=== PATIENT | male | born 1995 | race Hispanic/Latino ===

== ENCOUNTER 2025-03-11 06:16 | Emergency (ER) | payer BC ==
[2025-03-11] MEDS ORDERED: KETOROLAC 30 MG/ML INJ ONE (06:35)
[2025-03-11] MEDS ORDERED: TAMSULOSIN 0.4 MG SR CAP ONE (06:35)
[2025-03-11] MEDS ORDERED: ONDANSETRON 4 MG/2 ML VIAL ONE (06:35)
[2025-03-11] MEDS ORDERED: MAGNESIUM SULFATE 1 gm IVPB 1 GM/100 ML BAG IV ONE (06:36)
[2025-03-11] MEDS ORDERED: MORPHINE 4 MG/ML SYR ONE (06:36)
[2025-03-11 06:41] LABS: Absolute Lymphocytes (CBC) 1.4 K/uL (0.7-4.9); Hematocrit 46.9 % (39.6-49.0); Hemoglobin 16.1 g/dL (13.6-17.9); MCH 30.1 pg (27.0-35.0); MCHC 34.4 g/dL (32.0-36.0); MCV 87.5 fL (80-100); MPV 8.9 fL (7.6-11.3); Nucleated RBC Absolute Count 0.0 (0-0); Nucleated Red Blood Cells % 0.2 % (0-0); RBC Red Blood Cell Count 5.36 M/uL (4.33-5.43); White Blood Count 6.30 thou/uL (4.3-10.9)
[2025-03-11 06:50] LABS: Sqamous Epithelial <5 /HPF (None Seen); Urine Culture Reflex Order NOT NEEDED; Urine Microscopic Reflex YN ORDER UMIC
[2025-03-11 06:57] LABS: ALT/SGPT 86.0 U/L (16-61); AST/SGOT 79.0 U/L (15-37); Albumin 3.8 g/dL (3.4-5.0); Albumin/Globulin Ratio 1.2 (1.1-1.8); Alkaline Phosphatase 98.0 U/L (45-117); Anion Gap 9.9 mEq/L (5.0-15.0); BUN Blood Urea Nitrogen 15.0 mg/dL (7-18); Globulin 3.2 g/dL (2.3-3.5); Glucose Level 96.0 mg/dL (74-106); Potassium 3.9 mEq/L (3.5-5.1)
--- NOTE | 2025-03-11 07:47 | RAD REPORT ---
EXAMINATION: CT ABDOMEN AND PELVIS WITHOUT CONTRAST CLINICAL INDICATION: right flank pain TECHNIQUE: CT abdomen and pelvis was performed, without IV contrast, as per department protocol. Axia l, sagittal and coronal reconstructions were obtained. One or more of the following dose reduction techniques were used: Automated exposure control, adjustment of the mA and kV according to the patien t size, and iterative reconstruction. Unless otherwise specified, incidental findings do not require dedicated imaging follow-up. COMPARISON: No prior exam. FINDINGS: The lack of intravenous contrast limits the sensitivity of this exam for evaluation of solid visceral organs, vascular structures, and retroperitoneum. LOWER CHEST: The visualized lung bases are clear. LIVER:Normal in size and contour. No focal lesion. Grossly unremarkable gallbladder. SPLEEN: Normal size. No focal lesion. PANCREAS: No mass, ductal dilation, or josé luis-pancreatic fluid. ADRENALS: Normal; no mass. KIDNEYS AND URETERS: 7 mm stone is present in the proximal right ureter resulting in moderate right h ydronephrosis. Additional bilateral calyceal calculi seen, largest inferiorly on the left measuring 6 mm. URINARY BLADDER: Normal contour. GASTROINTESTINAL TRACT: No evidence of bowel obstruction, significant free fluid, free air or abscess . APPENDIX: Normal appendix. LYMPH NODES: No lymphadenopathy. MUSCULOSKELETAL: Mild multilevel spinal degenerative changes. ADDITIONAL FINDINGS: None. IMPRESSION: 7 mm stone proximal right ureter resulting in moderate right hydronephrosis. Additional bilateral marcus yceal calculi also present.
--- NOTE | 2025-03-11 07:59 | ER ---
Nurse's Notes [facility] Name: Tyree Marie Age: 29 yrs Sex: Male : 1995 Arrival Date: 03/11/2025 Time: 06:16 Bed 7 Private MD: Diagnosis: Ureterolithiasis, kidney stone, hydronephrosis, right flank pain Presentation: 03/11 06:29 Chief complaint: Patient states: I have right sided flank pain that began yesterday bm8 morning. Coronavirus screen: At this time, the client does not indicate any symptoms associated with coronavirus-19. Ebola Screen: Patient negative for fever greater than or equal to 101.5 degrees Fahrenheit, and additional compatible Ebola Virus Disease symptoms Patient denies exposure to infectious person. Patient denies travel to an Ebola-affected area in the 21 days before illness onset. No symptoms or risks identified at this time. Initial Sepsis Screen: Does the patient meet any 2 criteria? No. Patient's initial sepsis screen is negative. Does the patient have a suspected source of infection? No. Patient's initial sepsis screen is negative. Risk Assessment: Do you want to hurt yourself or someone else? Patient reports no desire to harm self or others. Onset of symptoms was March 10, 2025 at 08:00. 06:29 Method Of Arrival: Ambulatory bm8 06:29 Acuity: REJI 3 bm8 Triage Assessment: 06:30 General: Appears in no apparent distress. uncomfortable, Behavior is calm, cooperative, bm8 appropriate for age. Pain: Complains of pain in anterior aspect of right lateral abdomen and posterior aspect of right lateral abdomen Pain currently is 6 out of 10 on a pain scale. EENT: No deficits noted. No signs and/or symptoms were reported regarding the EENT system. Neuro: No deficits noted. Level of Consciousness is awake, alert, obeys commands, Oriented to person, place, time, situation, Appropriate for age. Cardiovascular: No deficits noted. Denies chest pain. Respiratory: No deficits noted. GI: No signs and/or symptoms were reported involving the gastrointestinal system. : Urine is blood tinged, Reports pain in right flank(s). Derm: No signs and/or symptoms reported regarding the dermatologic system. Musculoskeletal: No signs and/or symptoms reported regarding the musculoskeletal system. Historical: - Allergies: 06:30 No Known Allergies; bm8 - Home Meds: 06:30 None [Active]; bm8 - PMHx: 06:30 Kidney stone; bm8 - PSHx: 06:30 urethral stent; bm8 - Immunization history:: Adult Immunizations up to date. - Infectious Disease History:: Denies. - Family history:: not pertinent. - Social history:: Smoking status: Patient denies any tobacco usage or history of. - Hospitalizations: : No recent hospitalization is reported. Screenin:34 [facility] ED Fall Risk Assessment (Adult) History of falling in the last 3 months, bm8 including since admission No falls in past 3 months (0 pts) Confusion or Disorientation No (0 pts) Intoxicated or Sedated No (0 pts) Impaired Gait No (0 pts) Mobility Assist Device Used No (0 pt) Altered Elimination No (0 pt) Score/Fall Risk Level 0 - 2 = Low Risk Oriented to surroundings, Maintained a safe environment, Educated pt \T\ family on fall prevention, incl call for assistance when getting out of bed, Assessed \T\ reinforced patient's understanding of fall precautions, Hourly rounding (assess needs \T\ fall precautionary measures) done, Used ambulatory aids as needed (educated on \T\ assisted with), Used gait belt as appropriate. Abuse screen: Denies threats or abuse. Nutritional screening: No deficits noted. Tuberculosis screening: No symptoms or risk factors identified. Assessment: 06:34 Reassessment: see triage assessment. bm8 07:36 Reassessment: Patient denies pain at this time. Patient states feeling better. Patient ar8 states symptoms have improved. 08:30 Reassessment: Patient appears in no apparent distress at this time. Patient and/or ph family updated on plan of care and expected duration. Pain level reassessed. Patient is alert, oriented x 3, equal unlabored respirations, skin warm/dry/pink. Patient denies pain at this time. Patient states feeling better. Patient states symptoms have improved. Vital Signs: 06:29 BP 144 / 104; Pulse 58; Resp 17; Temp 98.8; Pulse Ox 98% ; Weight 108.86 kg; Height 5 bm8 ft. 10 in. ; Pain 6/10; 07:37 Pain 0/10; ar8 07:38 Pain 0/10; ar8 07:42 BP 128 / 85; Pulse 53; Resp 18; Pulse Ox 98% on R/A; Pain 0/10; ar8 06:29 Body Mass Index 34.44 (108.86 kg, 177.8 cm) bm8 06:29 Pain Scale: Adult bm8 07:37 Pain Scale: Adult ar8 07:38 Pain Scale: Adult ar8 07:42 Pain Scale: Adult ar8 Cristy Coma Score: 06:34 Eye Response: spontaneous(4). Motor Response: obeys commands(6). Verbal Response: bm8 oriented(5). Total: 15. ED Course: 06:20 Patient arrived in ED. gm2 06:23 Ronny Enciso MD is Attending Physician. rn 06:29 Adams Oconnor RN is Primary Nurse. bm8 06:30 Triage completed. bm8 06:30 Arm band placed on right wrist. bm8 06:34 Patient has correct armband on for positive identification. Bed in low position. Call bm8 light in reach. Side rails up X 1. Client placed on continuous cardiac and pulse oximetry monitoring. NIBP monitoring applied. Pulse ox on. NIBP on. Door closed. Noise minimized. Pillow given. Verbal reassurance given. Head of bed elevated. 06:34 No provider procedures requiring assistance completed. Initial lab(s) drawn, by ED 8 staff, sent to lab. Urine collected: clean catch specimen, clear. Inserted saline lock: 20 gauge in left antecubital area, using aseptic technique. Blood collected. Flushed with 10 mL NS. Patient maintains SpO2 saturation greater than 95% on room air. 06:47 CT Stone Protocol In Process Unspecified. EDMS 07:08 Attending Physician role handed off by Ronny Enciso MD sp3 07:08 Stan Michelle MD is Attending Physician. sp3 07:58 Steve Mantilla MD is Referral Physician. sp3 08:30 IV discontinued, intact, bleeding controlled, No redness/swelling at site. Pressure ph dressing applied. Administered Medications: 06:55 Drug: Magnesium Sulfate IVPB 1 grams IVPB once over 1 hrs Route: IVPB; Infused Over: 1 lg3 hrs; Site: left antecubital; 07:39 Follow up: Response: No adverse reaction; IV Status: Completed infusion ar8 06:55 Drug: Ketorolac IVP 30 mg IVP once Route: IVP; Site: left antecubital; lg3 07:38 Follow up: Pain 0/10 Adult; Response: No adverse reaction; Pain is decreased ar8 06:55 Drug: morphine IVP or IV 4 mg IVP once over 4 mins Route: IVP; Infused Over: 4 mins; lg3 Site: left antecubital; 07:37 Follow up: Pain 0/10 Adult; Response: No adverse reaction; Pain is decreased ar8 06:55 Drug: Ondansetron IVP 4 mg IVP once; over 2 minutes Route: IVP; Site: left antecubital; lg3 07:37 Follow up: Response: No adverse reaction; Marked relief of symptoms ar8 06:55 Drug: Flomax PO 0.4 mg PO once Route: PO; lg3 07:37 Follow up: Response: No adverse reaction ar8 Medication: 06:34 VIS not applicable for this client. bm8 Outcome: 07:58 Discharge ordered by . sp3 08:29 Discharged to home ambulatory, ph 08:29 Condition: good 08:29 Discharge instructions given to patient, Instructed on discharge instructions, follow up and referral plans. medication usage, Demonstrated understanding of instructions, follow-up care, medications, Prescriptions given X 3, 08:30 Patient left the ED. ph Signatures: Dispatcher [employer] EDMS Ronny Enciso MD MD rn Hall, Patricia, RN RN [facility] RN lg3 Stan Michelle MD MD sp3 Luann Soto 2 Adams Oconnor RN RN bm8 Long Carey RN RN ar8 Corrections: (The following items were deleted from the chart) 06:39 06:34 Inserted saline lock: 20 gauge in right antecubital area, using aseptic lg3 technique. Blood collected. Flushed with 10 mL NS bm8
--- NOTE | 2025-03-11 07:59 | EDPHYS ---
Physician Documentation [facility] Name: Tryee Marie Age: 29 yrs Sex: Male : 1995 Arrival Date: 03/11/2025 Time: 06:16 Bed 7 Private MD: ED Physician Stan Michelle HPI: 03/11 06:28 This 29 yrs old Male presents to ER via Unassigned with complaints of Flank rn Pain, Low Back Pain. 06:28 Patient reports right flank pain, identical to previous kidney stones. Reported needed rn intervention last year to pass a kidney stone.. Historical: - Allergies: 06:30 No Known Allergies; bm8 - Home Meds: 06:30 None [Active]; bm8 - PMHx: 06:30 Kidney stone; bm8 - PSHx: 06:30 urethral stent; bm8 - Immunization history:: Adult Immunizations up to date. - Infectious Disease History:: Denies. - Family history:: not pertinent. - Social history:: Smoking status: Patient denies any tobacco usage or history of. - Hospitalizations: : No recent hospitalization is reported. ROS: 06:28 Constitutional: Negative for fever, chills, and weight loss, Cardiovascular: Negative rn for chest pain, palpitations, and edema, Respiratory: Negative for shortness of breath, cough, wheezing, and pleuritic chest pain, Abdomen/GI: Negative for abdominal pain, nausea, vomiting, diarrhea, and constipation, Back: Positive for flank pain Exam: 06:28 Constitutional: This is a well developed, well nourished patient who is awake, alert, rn and in no acute distress. Ambulatory to room and bathroom without assistance or difficulty Abdomen/GI: Soft, nontender Vital Signs: 06:29 BP 144 / 104; Pulse 58; Resp 17; Temp 98.8; Pulse Ox 98% ; Weight 108.86 kg; Height 5 bm8 ft. 10 in. ; Pain 6/10; 07:37 Pain 0/10; ar8 07:38 Pain 0/10; ar8 07:42 BP 128 / 85; Pulse 53; Resp 18; Pulse Ox 98% on R/A; Pain 0/10; ar8 06:29 Body Mass Index 34.44 (108.86 kg, 177.8 cm) bm8 06:29 Pain Scale: Adult bm8 07:37 Pain Scale: Adult ar8 07:38 Pain Scale: Adult ar8 07:42 Pain Scale: Adult ar8 Bonita Coma Score: 06:34 Eye Response: spontaneous(4). Motor Response: obeys commands(6). Verbal Response: bm8 oriented(5). Total: 15. MDM: 06:23 Medical Screening Exam initiated rn 07:32 Data reviewed: vital signs, nurses notes, lab test result(s), radiologic studies. ED sp3 course: 29-year-old male signed out to me by Dr. Enciso at change of shift. Patient is awaiting laboratory values and CT scan of the abdomen pelvis with working diagnosis kidney stone. We will await workup and medicate as needed. Disposition pending workup and patient course.. 07:57 ED course: Patient with 7 mm stone in her proximal right ureter with moderate sp3 hydronephrosis. Pain is fully controlled. I had conversation with patient on intervention versus awaiting passage. Given his symptomatic control currently, we will await passage. He will be referred to Dr. Mantilla with clear instructions to return here for any worsening symptoms for probable transfer for stent placement.. 03/11 06:27 Order name: CBC with Diff; Complete Time: 07:01 rn 03/11 06:27 Order name: CMP; Complete Time: 07:01 rn 03/11 06:27 Order name: UA Rfx Win Cult if indicated; Complete Time: 07:01 rn 03/11 06:27 Order name: CT Stone Protocol; Complete Time: 07:56 rn 03/11 06:27 Order name: IV Saline Lock; Complete Time: 06:39 rn 03/11 06:27 Order name: Labs collected and sent; Complete Time: 06:39 rn Administered Medications: 06:55 Drug: Magnesium Sulfate IVPB 1 grams IVPB once over 1 hrs Route: IVPB; Infused Over: 1 lg3 hrs; Site: left antecubital; 07:39 Follow up: Response: No adverse reaction; IV Status: Completed infusion ar8 06:55 Drug: Ketorolac IVP 30 mg IVP once Route: IVP; Site: left antecubital; lg3 07:38 Follow up: Pain 0/10 Adult; Response: No adverse reaction; Pain is decreased ar8 06:55 Drug: morphine IVP or IV 4 mg IVP once over 4 mins Route: IVP; Infused Over: 4 mins; lg3 Site: left antecubital; 07:37 Follow up: Pain 0/10 Adult; Response: No adverse reaction; Pain is decreased ar8 06:55 Drug: Ondansetron IVP 4 mg IVP once; over 2 minutes Route: IVP; Site: left antecubital; lg3 07:37 Follow up: Response: No adverse reaction; Marked relief of symptoms ar8 06:55 Drug: Flomax PO 0.4 mg PO once Route: PO; lg3 07:37 Follow up: Response: No adverse reaction ar8 Disposition Summary: 03/11/25 07:58 Discharge Ordered Notes: Location: Home sp3 Condition: Stable sp3 Diagnosis - Ureterolithiasis, kidney stone, hydronephrosis, right flank pain sp3 Followup: sp3 - With: Steve Mantilla MD - When: Upon discharge from the Emergency Department - Reason: Continuance of care Discharge Instructions: - Discharge Summary Sheet sp3 - Kidney Stones sp3 Forms: - Medication Reconciliation Form sp3 - Antibiotic Education sp3 - Prescription Opioid Use sp3 - Patient Portal Instructions sp3 - Leadership Thank You Letter sp3 Prescriptions: - Flomax 0.4 mg Oral capsule - take 1 capsule ORAL route daily; 5 capsule; Refills: 0, Product Selection sp3 Permitted - Diclofenac Sodium 75 mg Oral Tablet Sustained Release - take 1 tablet ORAL route 2 times per day; 30 tablet; Refills: 0, Product sp3 Selection Permitted - Tramadol 50 mg Oral Tablet - take 1 tablet ORAL route every 8 hours as needed; 12 tablet; Refills: 0, sp3 Product Selection Permitted Signatures: Dispatcher [employer] Ronny Deluca MD MD rn Able, Lacie RN RN lg3 Stan Michelle MD MD sp3 Adams Oconnor, RN RN bm8 Long Carey RN ar8
[2025-03-11 08:35] VITALS: TEMP 98.8; O2SAT 98
[2025-03-11 08:40] VITALS: BP 128/85
== END 2025-03-11 08:30 | disposition home or self-care (01) ==
LOC: ER 06:16
DX: N13.2 Hydronephrosis with renal and ureteral calculous obstruction (principal); Z87.442 Personal history of urinary calculi
CPT/HCPCS: 96365; 85025; 81001; 36415; 80053; 76377; 74176; 96375; 99284; J3475; J2405